=== PATIENT | female | born 1970 | race Caucasian/White ===

== ENCOUNTER → 2022-11-07 | Outpatient (CLI) | payer OTHER | END | disposition home or self-care (01) | LOC: SONOGRAMA 13:34 | PROVIDERS: ATTEND Pathology Anatomic Pathology & Clinical Pathology | DX: C73 Malignant neoplasm of thyroid gland (principal); D44.0 Neoplasm of uncertain behavior of thyroid gland; E04.2 Nontoxic multinodular goiter; E07.9 Disorder of thyroid, unspecified ==